=== PATIENT | female | born 1985 | race Caucasian/White ===

== ENCOUNTER 2022-11-05 10:39 | Emergency (ER) | payer SELFPAY | END 2022-11-05 12:08 | disposition home or self-care (01) | LOC: CSHERS 10:39 | DX: M25.512 Pain in left shoulder (principal); F17.210 Nicotine dependence, cigarettes, uncomplicated ==

== ENCOUNTER 2023-09-07 14:11 | Emergency (ER) | payer SELFPAY ==
[2023-09-07] MEDS ORDERED: predniSONE 20 MG TAB ONE (14:38)
== END 2023-09-07 14:49 | disposition home or self-care (01) ==
LOC: CSHERS 14:11
DX: L25.9 Unspecified contact dermatitis, unspecified cause (principal); F17.210 Nicotine dependence, cigarettes, uncomplicated
CPT/HCPCS: 99284; J7512

== ENCOUNTER 2024-01-18 11:57 | Emergency (ER) | payer SELFPAY | END 2024-01-18 13:10 | disposition home or self-care (01) | LOC: CSHERS 11:57 | DX: K04.7 Periapical abscess without sinus (principal); J45.909 Unspecified asthma, uncomplicated; F17.210 Nicotine dependence, cigarettes, uncomplicated; F17.290 Nicotine dependence, other tobacco product, uncomplicated | CPT/HCPCS: 99282 ==